=== PATIENT | male | born 1970 | race African-American/Black ===

== ENCOUNTER 2016-12-24 12:31 | Emergency (ER) | payer OTHER ==
[~2016-12-24] VITALS: Ht 188 cm; Wt 166.9 kg
[2016-12-24 14:08] VITALS: BP 132/78
[2016-12-24] MEDS ORDERED: KETOROLAC TROMETH 60MG/2ML VIAL IM ONE (14:45)
== END 2016-12-24 16:36 | disposition home or self-care (01) ==
LOC: ER 12:31
DX: G89.29 Other chronic pain (principal); M54.5 Low back pain; I10 Essential (primary) hypertension; Z87.891 Personal history of nicotine dependence
CPT/HCPCS: 96372; 99283; J1885

== ENCOUNTER 2017-06-15 13:17 | Emergency (ER) | payer OTHER ==
[~2017-06-15] VITALS: Ht 188 cm; Wt 147.0 kg
[2017-06-15 13:22] VITALS: BP 151/106
[2017-06-15] MEDS ORDERED: METHOCARBAMOL 500 MG TAB PO ONE (15:30)
[2017-06-15] MEDS ORDERED: ONDANSETRON HCL 4 MG/2 ML VIAL IM ONE (15:30)
[2017-06-15] MEDS ORDERED: HYDROmorphone HCL 2 MG/ML VL IM ONE (15:30)
== END 2017-06-15 15:27 | disposition home or self-care (01) ==
LOC: ER 13:17
DX: S16.1XXA Strain of muscle, fascia and tendon at neck level, initial encounter (principal); J01.10 Acute frontal sinusitis, unspecified; I10 Essential (primary) hypertension
CPT/HCPCS: 96372; 99284; J1170; J2405

== ENCOUNTER 2017-10-19 07:03 | Inpatient (IN) | payer OTHER ==
[~2017-10-19] VITALS: Ht 188 cm; Wt 169.0 kg
[2017-10-19 07:55] LABS: Basophils # (auto) 0.1 uL; Basophils % (auto) 1.1 % (0.0-2.0); Eosinophils # (auto) 0.1 uL; Eosinophils % (auto) 0.9 % (0.0-7.0); Hematocrit 45.2 % (41.0-53.0); Lymphocytes # (auto) 1.7 uL; Lymphocytes % (auto) 24.9 % (10.0-50.0); Mean Corpuscular Hemoglobin 27.9 pg (28.0-32.0); Mean Corpuscular Hgb Conc. 33.1 g/dL (32.0-36.0); Mean Corpuscular Volume 84.3 fL (80.0-100.0); Monocytes # (auto) 0.7 uL; Neutrophils # (auto) 4.2 uL; Neutrophils % (auto) 62.1 % (37.0-80.0); Nucleated Red Blood Cells % 0.1 %; Platelet Count (auto) 296 10^3/uL (140-450); Red Blood Cells 5.35 10^6/uL (4.5-5.90); Red Cell Distribution Width 14.1 % (11.8-14.3); White Blood Cell 6.7 10^3/uL (4.4-10.8)
[2017-10-19 08:05] LABS: Albumin 3.7 g/dL (3.4-5.0); BUN/Creatinine Ratio 15.6; Calcium 8.8 mg/dL (8.5-10.1); Magnesium 1.9 mg/dL (1.6-2.6); Potassium 4.4 mmol/L (3.5-5.1)
[2017-10-19 08:09] LABS: Total Protein 7.5 g/dL (6.4-8.2)
[2017-10-19 12:09] LABS: Bilirubin, Total 0.3 mg/dL (0.2-1.0)
[2017-10-19] MEDS ORDERED: SODIUM CHLORIDE 0.9% 500 ML IVB ONE (19:46)
[2017-10-19] MEDS ORDERED: ONDANSETRON HCL 4 MG/2 ML VIAL IV ONE (20:45)
[2017-10-19] MEDS ORDERED: MORPHINE SULFATE 4 MG/ML SYR/VIAL IV ONE (20:45)
[2017-10-19] MEDS ORDERED: MORPHINE SULF INJ 2 MG/ML SYRINGE 1ML ONE (20:51)
[2017-10-19] MEDS ORDERED: ONDANSETRON HCL 4 MG/2 ML VIAL IV PRN (21:15)
[2017-10-19] MEDS ORDERED: ACETAMINOPHEN 500 MG TAB PO PRN (21:15)
[2017-10-19] MEDS ORDERED: NITROGLYCERIN 0.4 MG SL TAB SL PRN (21:15)
[2017-10-19] MEDS ORDERED: MORPHINE SULFATE 10 MG/ML INJ 1ML SDV IV PRN (21:15)
[2017-10-19] MEDS: MORPHINE SULFATE 10 MG/ML INJ 1ML SDV IV PRN (22:58)
[2017-10-19] MEDS ORDERED: AMLO5TAB2 PO (23:12)
[2017-10-19 23:16] VITALS: BP 125/73
[2017-10-20 05:50] VITALS: BP 121/71
[2017-10-20 06:35] LABS: Basophils # (auto) 0.1 uL; Basophils % (auto) 1.2 % (0.0-2.0); Eosinophils # (auto) 0.2 uL; Eosinophils % (auto) 2.8 % (0.0-7.0); Hematocrit 42.4 % (41.0-53.0); Hemoglobin 13.9 g/dL (13.5-17.5); Lymphocytes # (auto) 1.5 uL; Lymphocytes % (auto) 27.5 % (10.0-50.0); Mean Corpuscular Hemoglobin 28.1 pg (28.0-32.0); Mean Corpuscular Hgb Conc. 32.8 g/dL (32.0-36.0); Mean Corpuscular Volume 85.7 fL (80.0-100.0); Monocytes # (auto) 0.6 uL; Monocytes % (auto) 11.8 % (0.0-12.0); Neutrophils # (auto) 3.1 uL; Neutrophils % (auto) 56.7 % (37.0-80.0); Nucleated Red Blood Cells % 0.1 %; Platelet Count (auto) 263 10^3/uL (140-450); Red Blood Cells 4.95 10^6/uL (4.5-5.90); Red Cell Distribution Width 14.4 % (11.8-14.3); White Blood Cell 5.5 10^3/uL (4.4-10.8)
[2017-10-20 06:52] LABS: BUN/Creatinine Ratio 16.8; Calcium 8.2 mg/dL (8.5-10.1)
[2017-10-20 09:00] VITALS: BP 126/65
[2017-10-20] MEDS: ENOXAPARIN SOD 150 MG/1 ML SYRINGE SC SCH ×2 (09:20→21:42)
[2017-10-20] MEDS: HYDROcodone-ACET 5/325MG TAB PO PRN (09:20)
[2017-10-20] MEDS: amLODIPine BESYLATE 5 MG TAB PO SCH (09:21)
[2017-10-20 12:54] VITALS: BP 124/69
[2017-10-20] MEDS: MORPHINE SULFATE 10 MG/ML INJ 1ML SDV IV PRN (12:54)
[2017-10-20] MEDS ORDERED: ONDANSETRON HCL 4 MG/2 ML VIAL IV PRN (16:30)
[2017-10-20 17:00] VITALS: BP 117/67
[2017-10-20] MEDS ORDERED: HYDROmorphone HCL 2 MG/ML VL IV SCH (18:00)
[2017-10-20] MEDS ORDERED: HYDROmorphone HCL 2 MG/ML VL IV PRN (18:00)
[2017-10-20 22:00] VITALS: BP 125/65
[2017-10-21] MEDS: HYDROcodone-ACET 5/325MG TAB PO PRN ×2 (04:55→09:18)
[2017-10-21 05:00] VITALS: BP 134/81
[2017-10-21 09:00] VITALS: BP 126/82
[2017-10-21] MEDS: amLODIPine BESYLATE 5 MG TAB PO SCH (09:18)
[2017-10-21] MEDS: ENOXAPARIN SOD 150 MG/1 ML SYRINGE SC SCH (09:19)
[2017-10-21 10:38] VITALS: BP 126/82
== END 2017-10-21 11:25 | disposition home or self-care (01) | DRG 206 ==
LOC: ER 07:03 → TELE 07:04 → TELE-CENTR 22:33
PROVIDERS: ADMIT Nurse Practitioner Family; ATTEND Family Medicine
DX: M94.0 Chondrocostal junction syndrome [Tietze] (principal); E66.01 Morbid (severe) obesity due to excess calories; Z68.42 Body mass index [BMI] 45.0-49.9, adult; F17.210 Nicotine dependence, cigarettes, uncomplicated; R51 Headache; I10 Essential (primary) hypertension; Z79.899 Other long term (current) drug therapy; Z82.3 Family history of stroke; Z82.49 Family history of ischemic heart disease and other diseases of the circulatory system; Z83.3 Family history of diabetes mellitus; Z86.718 Personal history of other venous thrombosis and embolism
CPT/HCPCS: 36415; 71046; 80048; 80053; 80061; 83735; 83880; 84443; 84484; 85025; 85379; 93005; 94761; 96374; J2405

== ENCOUNTER 2020-09-27 02:12 | Inpatient (IN) | payer MEDICARE, OTHER ==
[~2020-09-27] VITALS: Ht 188 cm; Wt 168.3 kg
[~2020-09-27 02:12] MED LIST: AMLO5TAB15 PO
[2020-09-27 03:49] LABS: Basophils # (auto) 0.1 10 ^3/uL (0-0.2); Eosinophils # (auto) 0.2 10 ^3/uL (0-0.8); Mean Corpuscular Volume 78.2 fL (80.0-100.0); Neutrophils # (auto) 4.4 10 ^3/uL (1.6-8.6); White Blood Cell 7.7 10^3/uL (4.4-10.8)
[2020-09-27 03:51] LABS: Basophils % (auto) 0.7 % (0.0-2.0); Eosinophils % (auto) 2.1 % (0.0-7.0); Hematocrit 31.4 % (41.0-53.0); Hemoglobin 9.9 g/dL (13.5-17.5); Lymphocytes # (auto) 2.3 10 ^3/uL (0.4-5.4); Lymphocytes % (auto) 29.3 % (10.0-50.0); Mean Corpuscular Hemoglobin 24.7 pg (28.0-32.0); Mean Corpuscular Hgb Conc. 31.6 g/dL (32.0-36.0); Monocytes # (auto) 0.8 10 ^3/uL (0-1.3); Monocytes % (auto) 10.8 % (0.0-12.0); Neutrophils % (auto) 57.1 % (37.0-80.0); Nucleated Red Blood Cells % 0.1 %; Platelet Count (auto) 307 10^3/uL (140-450); Red Blood Cells 4.02 10^6/uL (4.5-5.90); Red Cell Distribution Width 16.8 % (11.8-14.3)
[2020-09-27 04:03] LABS: INR 1.04 (0.9-1.15); Partial Thromboplastin Time 23.4 sec (23.0-31.2)
[2020-09-27 04:07] LABS: Albumin 2.9 g/dL (3.4-5.0); BUN/Creatinine Ratio 16.1; Calcium 7.9 mg/dL (8.5-10.1); Potassium 4.3 mmol/L (3.5-5.1)
[2020-09-27 04:12] LABS: Bilirubin, Total 0.2 mg/dL (0.2-1.0); Total Protein 5.9 g/dL (6.4-8.2)
[2020-09-27] MEDS ORDERED: MORPHINE SULF INJ 2 MG/ML SYRINGE 1ML IV ONE (04:15)
[2020-09-27] MEDS ORDERED: SODIUM CHLORIDE 0.9% 1,000 ML IV ONE (04:15)
[2020-09-27] MEDS ORDERED: metroNIDAZOLE 500 MG TAB PO ONE (04:30)
[2020-09-27] MEDS ORDERED: ACETAMINOPHEN 325 MG TAB PO PRN (08:15)
[2020-09-27] MEDS: D5W/SOD CHLO 0.9% 1,000 ML IV SCH ×2 (08:15→16:27)
[2020-09-27] MEDS ORDERED: ONDANSETRON HCL 4 MG/2 ML VIAL IV PRN (08:15)
[2020-09-27] MEDS ORDERED: MORPHINE SULF INJ 2 MG/ML SYRINGE 1ML IV PRN (08:15)
[2020-09-27] MEDS ORDERED: DOCUSATE SOD 100 MG CAP PO PRN (08:15)
[2020-09-27] MEDS ORDERED: NITROGLYCERIN 0.4 MG SL TAB SL PRN (08:15)
[2020-09-27] MEDS ORDERED: HYDROcodone-ACET 5/325MG TAB PO PRN (08:15)
[2020-09-27] MEDS ORDERED: PANTOPRAZOLE 40 MG/10 ML VIAL INJ IV SCH (10:00)
[2020-09-27 10:35] LABS: Basophils # (auto) 0.1 10 ^3/uL (0-0.2); Basophils % (auto) 1.4 % (0.0-2.0); Eosinophils # (auto) 0.2 10 ^3/uL (0-0.8); Mean Corpuscular Volume 78.2 fL (80.0-100.0); Monocytes # (auto) 0.8 10 ^3/uL (0-1.3); Monocytes % (auto) 10.4 % (0.0-12.0)
[2020-09-27 10:37] LABS: Eosinophils % (auto) 2.8 % (0.0-7.0); Hematocrit 30.6 % (41.0-53.0); Lymphocytes # (auto) 2.1 10 ^3/uL (0.4-5.4); Lymphocytes % (auto) 28.3 % (10.0-50.0); Mean Corpuscular Hemoglobin 25.6 pg (28.0-32.0); Mean Corpuscular Hgb Conc. 32.7 g/dL (32.0-36.0); Neutrophils # (auto) 4.3 10 ^3/uL (1.6-8.6); Neutrophils % (auto) 57.1 % (37.0-80.0); Nucleated Red Blood Cells % 0.1 %; Platelet Count (auto) 286 10^3/uL (140-450); Red Blood Cells 3.91 10^6/uL (4.5-5.90); Red Cell Distribution Width 16.6 % (11.8-14.3); White Blood Cell 7.5 10^3/uL (4.4-10.8)
[2020-09-27 11:14] LABS: Albumin 3.2 g/dL (3.4-5.0); Calcium 8.1 mg/dL (8.5-10.1); Potassium 4.2 mmol/L (3.5-5.1)
[2020-09-27 11:20] LABS: BUN/Creatinine Ratio 17.6; Bilirubin, Total 0.3 mg/dL (0.2-1.0); Total Protein 6.2 g/dL (6.4-8.2)
[2020-09-27] MEDS: metroNIDAZOLE 500MG/100ML 100 ML IV SCH ×2 (14:00→22:08)
--- NOTE | 2020-09-27 19:30 | NUR ---
PATIENT RESTING IN BED AT THIS TIME. HAS NO CURRENT COMPLAINTS OF PAIN OR SHORTNESS OF BREATH. HE IS CURRENTLY ON ROOM AIR. WILL CONTINUE TO MONITOR.
[2020-09-27 22:00] VITALS: BP 152/100
[2020-09-27] MEDS: PANTOPRAZOLE 40 MG/10 ML VIAL INJ IV SCH (22:08)
[2020-09-27] MEDS: SUCRALFATE 1 GM/10 ML ORAL SUSP PO SCH (22:08)
[2020-09-28 02:20] VITALS: BP 152/75
--- NOTE | 2020-09-28 02:20 | NUR ---
Telemetry admit from YESSY RUBIO admitted to Telemetry unit after SBAR received. Patient oriented to Patria Steele, primary RN, unit, room, bed, and unit policies regarding patient care and visiting hours. Patient now on continuous telemetry monitoring, tele box # 68 and telemetry reading on arrival to unit is 78. Patient placed on bedside oxygen, weighed by bedscale and encouraged to call if they need something. All questions and concerns addressed, patient verbalized understanding. Note:
[2020-09-28 05:00] VITALS: BP 134/74
[2020-09-28] MEDS: metroNIDAZOLE 500MG/100ML 100 ML IV SCH ×3 (05:22→22:40)
[2020-09-28] MEDS: SUCRALFATE 1 GM/10 ML ORAL SUSP PO SCH ×4 (06:01→22:39)
--- NOTE | 2020-09-28 07:40 | NUR ---
Opening Shift Note: Assumed care of patient, awake and alert. No S/S of distress/SOB or pain. Bed in lowest locked position, side rails up x 2, call light within reach. Patient instructed on POC and to call for assist PRN, will continue to monitor for changes Q1hr and PRN.
--- NOTE | 2020-09-28 07:45 | NUR ---
COVID SWAB OBTAINED AND WALKED TO LAB.
[2020-09-28] MEDS: PANTOPRAZOLE 40 MG/10 ML VIAL INJ IV SCH ×2 (08:33→22:40)
[2020-09-28 09:00] VITALS: BP 122/65
--- NOTE | 2020-09-28 12:45 | NUR ---
INHOUSE COVID SWAB COLLECTED AND WALKED TO LAB.
[2020-09-28 13:00] VITALS: BP 117/66
[2020-09-28] MEDS: D5W/SOD CHLO 0.9% 1,000 ML IV SCH (15:27)
--- NOTE | 2020-09-28 16:26 | NUR ---
PAGED DR. Chelsie RICHARD REGARDING PENDING ORDERS AT THIS TIME. AWAITING CALL BACK.
[2020-09-28 17:00] VITALS: BP 118/71
[2020-09-28] MEDS ORDERED: GOLYTELY 4L KIT PO ONE (17:30)
--- NOTE | 2020-09-28 17:40 | NUR ---
PATIENT PROVIDED WITH GOLYTELY AT THIS TIME.
--- NOTE | 2020-09-28 18:48 | NUR ---
CLOSING NOTE: PATIENT RESTING IN BED. NO S/S OF DISTRESS. PATIENT EDUCATED ON IMPORTANCE OF FINISHING GOLYTELY. PATIENT VERBALLY AGREED.
--- NOTE | 2020-09-28 19:17 | NUR ---
IV WENT BAD AT THIS TIME. ENDORSED TO NOC GERARD.
[2020-09-28 19:35] LABS: Hematocrit 26.8 % (41.0-53.0); Hemoglobin 8.8 g/dL (13.5-17.5)
--- NOTE | 2020-09-28 21:00 | NUR ---
Opening Shift Note Received report from flora Rizo RN. Assumed care of patient, awake and alert. No S/S of distress/SOB or pain. Instructed on POC and to call for assist PRN, will continue to monitor for changes Q1hr and PRN. Bed placed in lowest position and call light within reach.
[2020-09-28 22:00] VITALS: BP 150/99
--- NOTE | 2020-09-28 22:00 | NUR ---
Stool sample sent to lab
[2020-09-28 22:16] LABS: Basophils # (auto) 0.1 10 ^3/uL (0-0.2); Eosinophils # (auto) 0.3 10 ^3/uL (0-0.8); Hemoglobin 8.6 g/dL (13.5-17.5); Neutrophils # (auto) 2.7 10 ^3/uL (1.6-8.6); Nucleated Red Blood Cells % 0.1 %; White Blood Cell 5.9 10^3/uL (4.4-10.8)
[2020-09-28 22:18] LABS: Eosinophils % (auto) 4.7 % (0.0-7.0); Hematocrit 26.5 % (41.0-53.0); Lymphocytes # (auto) 2.3 10 ^3/uL (0.4-5.4); Lymphocytes % (auto) 38.2 % (10.0-50.0); Mean Corpuscular Hemoglobin 25.7 pg (28.0-32.0); Mean Corpuscular Hgb Conc. 32.5 g/dL (32.0-36.0); Monocytes # (auto) 0.7 10 ^3/uL (0-1.3); Monocytes % (auto) 11.3 % (0.0-12.0); Neutrophils % (auto) 44.8 % (37.0-80.0); Platelet Count (auto) 264 10^3/uL (140-450); Red Blood Cells 3.35 10^6/uL (4.5-5.90); Red Cell Distribution Width 16.9 % (11.8-14.3)
[2020-09-28 22:44] LABS: Albumin 3.1 g/dL (3.4-5.0); Anion Gap 8 (5-15); Blood Urea Nitrogen 9 mg/dL (7-18); Calcium 7.8 mg/dL (8.5-10.1); Carbon Dioxide 25 mmol/L (21-32); Chloride 107 mmol/L (98-107); Glucose 102 mg/dL (74-106); Potassium 3.4 mmol/L (3.5-5.1); Sodium 140 mmol/L (136-145)
[2020-09-28 22:51] LABS: Alanine Aminotransferase 22 U/L (16-61); Alkaline Phosphatase 53 U/L (45-117); Aspartate Aminotransferase 18 U/L (15-37); BUN/Creatinine Ratio 9.1; Bilirubin, Total 0.2 mg/dL (0.2-1.0); GFR African American 102 mL/min; GFR Non-African American 85 mL/min; Total Protein 6.2 g/dL (6.4-8.2)
[2020-09-29 04:00] VITALS: BP 154/86
--- NOTE | 2020-09-29 04:56 | NUR ---
Patient is resting in bed, closed eyes and no distress noted.
[2020-09-29] MEDS: metroNIDAZOLE 500MG/100ML 100 ML IV SCH ×3 (05:39→21:12)
[2020-09-29] MEDS ORDERED: GOLYTELY 4L KIT PO ONE (06:00)
[2020-09-29] MEDS ORDERED: MAGNESIUM CITRATE SOLUTION 300 ML BTL PO ONE (06:00)
[2020-09-29] MEDS: SUCRALFATE 1 GM/10 ML ORAL SUSP PO SCH ×4 (06:53→21:12)
[2020-09-29] MEDS: D5W/SOD CHLO 0.9% 1,000 ML IV SCH ×2 (06:54→15:12)
--- NOTE | 2020-09-29 07:30 | NUR ---
Opening Shift Note: Assumed care of patient, awake and alert. No S/S of distress/SOB or pain. Patient completed bowel prep for pending EGD and colonoscopy. Bed in lowest locked position, side rails up x2, call light within reach. Patient instructed on POC and to call for assist PRN, will continue to monitor for changes Q1hr and PRN.
[2020-09-29 08:33] LABS: Basophils # (auto) 0.1 10 ^3/uL (0-0.2); Eosinophils # (auto) 0.2 10 ^3/uL (0-0.8); Lymphocytes # (auto) 1.6 10 ^3/uL (0.4-5.4); Neutrophils # (auto) 2.6 10 ^3/uL (1.6-8.6); Nucleated Red Blood Cells % 0.1 %; Red Blood Cells 3.14 10^6/uL (4.5-5.90)
[2020-09-29 08:35] LABS: Basophils % (auto) 1.2 % (0.0-2.0); Eosinophils % (auto) 4.5 % (0.0-7.0); Hematocrit 24.5 % (41.0-53.0); Lymphocytes % (auto) 32.1 % (10.0-50.0); Mean Corpuscular Hemoglobin 25.3 pg (28.0-32.0); Mean Corpuscular Hgb Conc. 32.5 g/dL (32.0-36.0); Monocytes # (auto) 0.5 10 ^3/uL (0-1.3); Monocytes % (auto) 10.5 % (0.0-12.0); Neutrophils % (auto) 51.7 % (37.0-80.0); Platelet Count (auto) 261 10^3/uL (140-450); Red Cell Distribution Width 16.6 % (11.8-14.3); White Blood Cell 5.1 10^3/uL (4.4-10.8)
[2020-09-29] MEDS: PANTOPRAZOLE 40 MG/10 ML VIAL INJ IV SCH ×2 (08:36→21:12)
[2020-09-29 08:51] LABS: BUN/Creatinine Ratio 6.3; Potassium 3.6 mmol/L (3.5-5.1)
[2020-09-29 09:00] VITALS: BP 151/82
--- NOTE | 2020-09-29 12:07 | NUR ---
PATIENT TAKEN DOWN TO OR AT THIS TIME.
[2020-09-29] MEDS ORDERED: MEPERIDINE HCL (25 MG/ML) 1ML VIAL ONE (12:42)
[2020-09-29] MEDS ORDERED: MIDAZOLAM HCL 1MG/1ML-2 ML VIAL ONE (12:42)
[2020-09-29] MEDS ORDERED: fentaNYL CITRATE 100 MCG/2 ML VL ONE (12:42)
[2020-09-29] MEDS ORDERED: LIDOCAINE VISCOUS 2% 15ML UD ONE (12:42)
[2020-09-29] MEDS ORDERED: DexAMETHasone SOD PHOS 10MG/1ML VIAL INJ ONE (12:44)
--- NOTE | 2020-09-29 14:27 | NUR ---
PATIENT BACK TO UNIT FROM OR. NO DISTRESS NOTED
[2020-09-29 15:00] VITALS: BP 142/80
--- NOTE | 2020-09-29 18:14 | NUR ---
PATIENT PROVIDED A CLEAR LIQUID TRAY. PATIENT TOLERATED WELL.
--- NOTE | 2020-09-29 18:33 | NUR ---
PATIENT RESTING IN BED. NO S/S OF DISTRESS.
--- NOTE | 2020-09-29 19:24 | NUR ---
Opening Shift Note Assumed care of patient, awake and alert x 4. No S/S of distress/SOB or pain. Bed is in lowest position and locked. Call light within reach. Board updated. Instructed on POC and to call for assist PRN, will continue to monitor for changes Q1hr and PRN.
[2020-09-29 19:32] LABS: Hematocrit 26.6 % (41.0-53.0); Hemoglobin 8.7 g/dL (13.5-17.5)
[2020-09-29 21:00] VITALS: BP 130/90
--- NOTE | 2020-09-29 23:07 | NUR ---
Received patient from Tyrell RN Patient is resting in bed, no complaints of pain or distress, call light is within reach, will continue to monitor.
--- NOTE | 2020-09-29 23:08 | NUR ---
Care endorsed to GERARD Payne. Patient asleep, showing no signs of distress at this time.
[2020-09-30 00:01] VITALS: BP 147/94
--- NOTE | 2020-09-30 01:13 | NUR ---
IV removal from MATT due to infiltration IV DC'd with clean sterile technique, catheter fully intact. Pressure dressing applied to site. Patient tolerated well.
--- NOTE | 2020-09-30 01:14 | NUR ---
IV insertion to RFA IV access obtained, via clean sterile technique by inserting 22 gauge catheter at RFA after 1 attempt(s). IV secured properly. No trauma to site. Patient tolerated well.
[2020-09-30 05:45] VITALS: BP 148/97
[2020-09-30] MEDS: D5W/SOD CHLO 0.9% 1,000 ML IV SCH (06:08)
[2020-09-30] MEDS: SUCRALFATE 1 GM/10 ML ORAL SUSP PO SCH ×2 (06:22→11:30)
[2020-09-30] MEDS: metroNIDAZOLE 500MG/100ML 100 ML IV SCH (06:22)
--- NOTE | 2020-09-30 07:00 | NUR ---
OPENING SHIFT NOTE RECEIVED REPORT ON THE PATIENT. AWAKE LYING IN BED. PATIENT SHOWS NO SIGNS OF DISTRESS AT THIS TIME. DISCUSSED THE PLAN OF CARE WITH THE PATIENT. BED IN LOWEST POSITION, SIDE RAILS UP X2, AND THE CALL LIGHT IS WITHIN REACH.
[2020-09-30 09:00] VITALS: BP 153/85
[2020-09-30] MEDS: PANTOPRAZOLE 40 MG/10 ML VIAL INJ IV SCH (10:00)
--- NOTE | 2020-09-30 10:33 | NUR ---
Nutrition Assessment Notes please see attached link for complete assessment Est Energy needs ABW 127 [id number] kcals (17-20 kcal/kgABW) Est Protein needs: 127-139 gms/day (1.0-1.1 gm/kgABW) Will continue to monitor and reassess prn.
[2020-09-30 11:39] VITALS: BP 153/85
== END 2020-09-30 13:48 | disposition home or self-care (01) | DRG 378 ==
LOC: ER 02:12 → TELE 02:13 → TELE-WESTW 09-28 02:00 → TELE-CENTR 09-28 02:36
PROVIDERS: ADMIT Nurse Practitioner Family; ATTEND Internal Medicine
PROC: 0DJD8ZZ Inspection of Lower Intestinal Tract, Via Natural or Artificial Opening Endoscopic (ICD-10-PCS; 2020-09-29)
PROC: 0DB68ZX Excision of Stomach, Via Natural or Artificial Opening Endoscopic, Diagnostic (ICD-10-PCS; principal; 2020-09-29 12:36)
PROC: 0DB88ZX Excision of Small Intestine, Via Natural or Artificial Opening Endoscopic, Diagnostic (ICD-10-PCS; 2020-09-29 12:36)
DX: K57.31 Diverticulosis of large intestine without perforation or abscess with bleeding (principal); E44.1 Mild protein-calorie malnutrition; Z68.42 Body mass index [BMI] 45.0-49.9, adult; Z20.828 Contact with and (suspected) exposure to other viral communicable diseases; K25.4 Chronic or unspecified gastric ulcer with hemorrhage; K29.81 Duodenitis with bleeding; K29.71 Gastritis, unspecified, with bleeding; D64.9 Anemia, unspecified; E66.01 Morbid (severe) obesity due to excess calories; I10 Essential (primary) hypertension; M51.36 Other intervertebral disc degeneration, lumbar region; F17.210 Nicotine dependence, cigarettes, uncomplicated; K44.9 Diaphragmatic hernia without obstruction or gangrene; F32.9 Major depressive disorder, single episode, unspecified; Z79.899 Other long term (current) drug therapy; Z86.718 Personal history of other venous thrombosis and embolism; Z82.3 Family history of stroke; Z82.49 Family history of ischemic heart disease and other diseases of the circulatory system; Z83.3 Family history of diabetes mellitus
CPT/HCPCS: 36415; 43239; 45378; 74176; 80048; 80053; 82270; 83735; 83880; 84443; 84484; 85014; 85018; 85025; 85379; 85610; 85730; 86850; 86900; 86901; 87045; 87426; 87427; 87493; 93005; 96361; 96374; C9113; G0378; J1100; J2250; J3490; J7042

== ENCOUNTER 2022-03-23 21:30 | Inpatient (IN) | payer MEDICARE, OTHER ==
[~2022-03-23] VITALS: Ht 188 cm; Wt 47.1 kg
[2022-03-23 22:56] LABS: Basophils # (auto) 0.1 10 ^3/uL (0-0.2); Eosinophils # (auto) 0.1 10 ^3/uL (0-0.8); Eosinophils % (auto) 2.6 % (0.0-7.0); Lymphocytes # (auto) 1.6 10 ^3/uL (0.4-5.4); Monocytes # (auto) 0.6 10 ^3/uL (0-1.3); White Blood Cell 5.1 10^3/uL (4.4-10.8)
[2022-03-23 22:58] LABS: Basophils % (auto) 1.5 % (0.0-2.0); Hematocrit 40.2 % (41.0-53.0); Lymphocytes % (auto) 31.3 % (10.0-50.0); Mean Corpuscular Hemoglobin 24.8 pg (28.0-32.0); Mean Corpuscular Hgb Conc. 32.3 g/dL (32.0-36.0); Monocytes % (auto) 11.4 % (0.0-12.0); Neutrophils # (auto) 2.7 10 ^3/uL (1.6-8.6); Neutrophils % (auto) 53.2 % (37.0-80.0); Nucleated Red Blood Cells % 0.1 %; Red Blood Cells 5.22 10^6/uL (4.5-5.90); Red Cell Distribution Width 19.6 % (11.8-14.3)
[2022-03-23 23:21] LABS: Albumin 3.4 g/dL (3.4-5.0); BUN/Creatinine Ratio 12.6; Calcium 8.8 mg/dL (8.5-10.1); Potassium 3.7 mmol/L (3.5-5.1)
[2022-03-23 23:24] LABS: Bilirubin, Total 0.3 mg/dL (0.2-1.0)
[2022-03-24] MEDS ORDERED: ALUM & MAG HYDROX-SIMETH LIQ(MAALOX) 30 ML PO ONE (01:30)
[2022-03-24] MEDS ORDERED: IOHEXOL 350 MG/ML 100ML IJ ONE (02:23)
[2022-03-24] MEDS ORDERED: ASPirin 325 MG TAB PO ONE (02:30)
[2022-03-24] MEDS ORDERED: ONDANSETRON HCL 4 MG/2 ML VIAL IV PRN (06:30)
[2022-03-24] MEDS ORDERED: NITROGLYCERIN 0.4 MG SL TAB SL PRN (06:30)
[2022-03-24] MEDS ORDERED: MORPHINE SULFATE INJ 2 MG/ml SYRG IV PRN (06:30)
[2022-03-24] MEDS ORDERED: TEMAZEPAM 15 MG CAP PO PRN (06:30)
[2022-03-24] MEDS ORDERED: LISINOPRIL 10 MG TAB PO SCH (10:00)
[2022-03-24] MEDS ORDERED: NITROGLYCERIN 0.4 MG SL TAB SL ONE (10:00)
[2022-03-24] MEDS: ENOXAPARIN SOD 40 MG/0.4 ML SYRINGE SC SCH (10:16)
[2022-03-24] MEDS: ASPirin 81 mg TAB PO SCH (10:16)
[2022-03-24] MEDS: dilTIAZem 120MG ER CAP PO SCH (14:37)
[2022-03-24] MEDS: ACETAMINOPHEN 325 MG TAB PO PRN (19:16)
[2022-03-24] MEDS: ATORVASTATIN 20 MG TAB PO SCH (21:56)
[2022-03-24] MEDS: METOPROLOL TARTRATE 50 MG TAB PO SCH ×2 (21:57→23:00)
[2022-03-24 22:00] VITALS: BP 161/87
[2022-03-24 22:25] VITALS: BP 150/90
[2022-03-25 00:34] VITALS: BP 161/87
[2022-03-25] MEDS ORDERED: FER325T PO (01:54)
[2022-03-25] MEDS ORDERED: ATOR10TA PO (01:54)
[2022-03-25] MEDS ORDERED: CHOL20007 (02:08)
[2022-03-25 05:00] VITALS: BP 139/89
[2022-03-25 05:32] LABS: Basophils # (auto) 0.1 10 ^3/uL (0-0.2); Eosinophils # (auto) 0.2 10 ^3/uL (0-0.8); Eosinophils % (auto) 3.5 % (0.0-7.0); Hematocrit 38.1 % (41.0-53.0); Hemoglobin 12.5 g/dL (13.5-17.5); Lymphocytes # (auto) 1.9 10 ^3/uL (0.4-5.4); Mean Corpuscular Hemoglobin 25.1 pg (28.0-32.0); Mean Corpuscular Hgb Conc. 32.8 g/dL (32.0-36.0); Mean Corpuscular Volume 76.6 fL (80.0-100.0); Monocytes # (auto) 0.5 10 ^3/uL (0-1.3); Monocytes % (auto) 11.3 % (0.0-12.0); Neutrophils # (auto) 2.1 10 ^3/uL (1.6-8.6); Neutrophils % (auto) 44.2 % (37.0-80.0); Red Blood Cells 4.98 10^6/uL (4.5-5.90); Red Cell Distribution Width 19.4 % (11.8-14.3); White Blood Cell 4.8 10^3/uL (4.4-10.8)
[2022-03-25 05:57] LABS: Calcium 8.9 mg/dL (8.5-10.1); Potassium 4.1 mmol/L (3.5-5.1)
[2022-03-25 06:04] LABS: Albumin 3.3 g/dL (3.4-5.0); BUN/Creatinine Ratio 14.7; Bilirubin, Total 0.7 mg/dL (0.2-1.0); Total Protein 6.9 g/dL (6.4-8.2)
[2022-03-25 06:32] LABS: Urine Bacteria NONE SEEN /hpf (None Seen); Urine Blood Negative /uL (Negative); Urine Mucus FEW (None Seen); Urine Specific Gravity 1.031 (1.001-1.035); Urine WBC 3 /hpf (0 - 3)
[2022-03-25 06:38] LABS: Alcohol, Urine < 3.0 mg/dL (0-10); Amphetamine Screen, Urine NEGATIVE (NEGATIVE); Barbiturate Scree,Urine NEGATIVE (NEGATIVE); Benzodiazephine Screen, Urine NEGATIVE (NEGATIVE); Cannabinoid Screen, Urine NEGATIVE (NEGATIVE); Cocaine Screen, Urine NEGATIVE (NEGATIVE); Opiate Scree,Urine NEGATIVE (NEGATIVE); Phencyclidine Screen, Urine NEGATIVE (NEGATIVE)
[2022-03-25 08:44] VITALS: BP 135/90
[2022-03-25] MEDS ORDERED: ADENOSINE IV ONE (09:00)
[2022-03-25] MEDS ORDERED: GIVE UN DILUTED IV ONE (09:00)
[2022-03-25] MEDS: METOPROLOL TARTRATE 50 MG TAB PO SCH ×2 (11:29→21:21)
[2022-03-25] MEDS: ASPirin 81 mg TAB PO SCH (11:29)
[2022-03-25] MEDS: dilTIAZem 120MG ER CAP PO SCH (11:30)
[2022-03-25] MEDS: ACETAMINOPHEN 325 MG TAB PO PRN (11:31)
[2022-03-25] MEDS: ENOXAPARIN SOD 40 MG/0.4 ML SYRINGE SC SCH (11:31)
[2022-03-25] MEDS: SODIUM CHLORIDE 0.9% 1,000 ML IV SCH (12:30)
[2022-03-25] MEDS ORDERED: LORazepam 2MG/ML-1ML VIAL IV PRN (12:30)
[2022-03-25] MEDS: METOCLOPRAMIDE HCL 10 MG TAB PO SCH ×2 (14:00→21:32)
[2022-03-25 16:15] VITALS: BP 134/88
[2022-03-25] MEDS ORDERED: IBUPROFEN 400 MG TAB PO ONE (17:40)
[2022-03-25] MEDS ORDERED: ACETAMINOPHEN 325 MG TAB PO PRN (19:45)
[2022-03-25] MEDS: ATORVASTATIN 20 MG TAB PO SCH (21:20)
[2022-03-25 22:00] VITALS: BP 142/82
[2022-03-25] MEDS ORDERED: IBUPROFEN 400 MG TAB PO PRN (22:00)
[2022-03-26] MEDS: SODIUM CHLORIDE 0.9% 1,000 ML IV SCH ×3 (02:18→18:57)
[2022-03-26 05:00] VITALS: BP 117/72
[2022-03-26] MEDS: METOCLOPRAMIDE HCL 10 MG TAB PO SCH ×3 (05:23→21:34)
[2022-03-26 09:00] VITALS: BP 125/67
[2022-03-26] MEDS: ASPirin 81 mg TAB PO SCH (09:22)
[2022-03-26] MEDS: METOPROLOL TARTRATE 50 MG TAB PO SCH ×2 (09:23→21:33)
[2022-03-26] MEDS: dilTIAZem 120MG ER CAP PO SCH (09:23)
[2022-03-26] MEDS: ENOXAPARIN SOD 40 MG/0.4 ML SYRINGE SC SCH (09:24)
[2022-03-26] MEDS: DexAMETHasone INJECTION 10 MG in D5W 5% 50 ML IV SCH (10:36)
[2022-03-26 13:00] VITALS: BP 113/63
[2022-03-26 17:00] VITALS: BP 150/85
[2022-03-26] MEDS: ATORVASTATIN 20 MG TAB PO SCH (21:33)
[2022-03-26 22:00] VITALS: BP 162/85
[2022-03-27] MEDS: SODIUM CHLORIDE 0.9% 1,000 ML IV SCH (04:10)
[2022-03-27 05:00] VITALS: BP 164/92
[2022-03-27] MEDS: METOCLOPRAMIDE HCL 10 MG TAB PO SCH (05:41)
[2022-03-27] MEDS ORDERED: DILT120T8 PO (08:48)
[2022-03-27] MEDS ORDERED: ASPI-498 PO (08:48)
[2022-03-27] MEDS ORDERED: METO25TA5 PO (08:48)
[2022-03-27] MEDS ORDERED: DEX4T PO (08:48)
[2022-03-27] MEDS ORDERED: METO-281 PO (08:48)
[2022-03-27 09:00] VITALS: BP 173/100
[2022-03-27] MEDS ORDERED: cloNIDine HCL 0.1 MG TAB PO ONE (09:00)
[2022-03-27] MEDS: ASPirin 81 mg TAB PO SCH (09:13)
[2022-03-27] MEDS: dilTIAZem 120MG ER CAP PO SCH (09:14)
[2022-03-27] MEDS: ENOXAPARIN SOD 40 MG/0.4 ML SYRINGE SC SCH (09:14)
[2022-03-27] MEDS: METOPROLOL TARTRATE 50 MG TAB PO SCH (09:15)
[2022-03-27] MEDS: DexAMETHasone INJECTION 10 MG in D5W 5% 50 ML IV SCH (10:01)
== END 2022-03-27 12:15 | disposition home or self-care (01) | DRG 313 ==
LOC: ER 21:34 → TELE 03-24 06:19 → TELE-EAST 03-24 21:15
PROVIDERS: ADMIT Nurse Practitioner; ATTEND Family Medicine
PROC: 5A09357 Assistance with Respiratory Ventilation, Less than 24 Consecutive Hours, Continuous Positive Airway Pressure (ICD-10-PCS; principal; 2022-03-25)
PROC: 5A09357 Assistance with Respiratory Ventilation, Less than 24 Consecutive Hours, Continuous Positive Airway Pressure (ICD-10-PCS; 2022-03-26)
DX: R07.9 Chest pain, unspecified (principal); Z68.42 Body mass index [BMI] 45.0-49.9, adult; I50.22 Chronic systolic (congestive) heart failure; E66.01 Morbid (severe) obesity due to excess calories; G47.30 Sleep apnea, unspecified; I11.0 Hypertensive heart disease with heart failure; Z20.822 Contact with and (suspected) exposure to COVID-19
CPT/HCPCS: 36415; 70551; 71045; 71260; 74177; 78452; 80053; 80307; 81001; 84484; 85025; 85379; 85652; 86141; 93005; 93017; 93306; 93970; 94660; 96372; G0378; J0153; J1100; J7060

== ENCOUNTER → 2023-06-21 | Outpatient (CLI) | payer MEDICARE, OTHER ==
[~2023-06-21] MED LIST changes: -AMLO5TAB15 PO; +ASPI-498 PO; +ATOR10TA PO; +CHOL20007; +DEX4T PO; +DILT120T8 PO; +FER325T PO; +METO-281 PO; +METO25TA5 PO
[2023-06-21 10:14] LABS: Basophils # (auto) 0 10 ^3/uL (0-0.2); Basophils % (auto) 0.8 % (0.0-2.0); Eosinophils # (auto) 0.1 10 ^3/uL (0-0.8); Eosinophils % (auto) 2.1 % (0.0-7.0); Hematocrit 44.8 % (41.0-53.0); Hemoglobin 14.6 g/dL (13.5-17.5); Mean Corpuscular Hgb Conc. 32.6 g/dL (32.0-36.0); Monocytes # (auto) 0.8 10 ^3/uL (0-1.3); Monocytes % (auto) 13.7 % (0.0-12.0); Neutrophils # (auto) 2.8 10 ^3/uL (1.6-8.6); Neutrophils % (auto) 48.4 % (37.0-80.0); Nucleated Red Blood Cells % 0.1 %; Red Blood Cells 5.39 10^6/uL (4.5-5.90); Red Cell Distribution Width 15.9 % (11.8-14.3); White Blood Cell 5.8 10^3/uL (4.4-10.8)
[2023-06-21 10:44] LABS: Triglycerides 58 mg/dL (< 150)
[2023-06-21 10:46] LABS: Cholesterol 153 mg/dL (< 200); LDL Cholesterol 105 mg/dL (< 100)
[2023-06-21 10:47] LABS: HDL Cholesterol 35 mg/dL (40-59)
== END | disposition home or self-care (01) ==
LOC: LAB 09:38
PROVIDERS: ATTEND Student in an Organized Health Care Education/Training Program
DX: Z12.11 Encounter for screening for malignant neoplasm of colon (principal); E66.01 Morbid (severe) obesity due to excess calories; I10 Essential (primary) hypertension; E84.9 Cystic fibrosis, unspecified
CPT/HCPCS: 36415; 80061; 85025

== ENCOUNTER 2023-08-14 15:17 | Emergency (ER) | payer MEDICARE ==
[~2023-08-14] VITALS: Ht 188 cm; Wt 171.9 kg
[2023-08-14 17:19] LABS: Basophils # (auto) 0.1 10 ^3/uL (0-0.2); Basophils % (auto) 0.9 % (0.0-2.0); Eosinophils # (auto) 0.1 10 ^3/uL (0-0.8); Eosinophils % (auto) 2.4 % (0.0-7.0); Hemoglobin 14.7 g/dL (13.5-17.5); Lymphocytes # (auto) 2.2 10 ^3/uL (0.4-5.4); Lymphocytes % (auto) 35.9 % (10.0-50.0); Mean Corpuscular Hemoglobin 27.3 pg (28.0-32.0); Mean Corpuscular Hgb Conc. 32.1 g/dL (32.0-36.0); Mean Corpuscular Volume 85.2 fL (80.0-100.0); Monocytes # (auto) 0.7 10 ^3/uL (0-1.3); Monocytes % (auto) 11.3 % (0.0-12.0); Neutrophils % (auto) 49.5 % (37.0-80.0); Nucleated Red Blood Cells % 0.1 %; Red Cell Distribution Width 15.4 % (11.8-14.3); White Blood Cell 6.1 10^3/uL (4.4-10.8)
[2023-08-14 17:36] LABS: Alanine Aminotransferase 17 U/L (7-40); Albumin 4.3 g/dL (3.2-4.8); Alkaline Phosphatase 62 U/L (46-116); Anion Gap 4 (5-15); Aspartate Aminotransferase 18 U/L (13-40); BUN/Creatinine Ratio 11.3 (10.0-20.0); Bilirubin, Total 0.5 mg/dL (0.2-1.0); Blood Urea Nitrogen 14 mg/dL (9-23); Calcium 9.2 mg/dL (8.7-10.4); Carbon Dioxide 30 mmol/L (20-30); Chloride 105 mmol/L (98-107); Glucose 92 mg/dL (74-106); Potassium 4.4 mmol/L (3.5-5.1); Sodium 139 mmol/L (136-145)
[2023-08-14 17:37] LABS: Total Protein 7.2 g/dL (5.7-8.2)
[2023-08-14] MEDS ORDERED: PROCHLORPERAZINE EDISYLATE 5 MG/ML 2ML VIAL IM ONE (18:30)
[2023-08-14] MEDS ORDERED: HYDROcodone-ACET 7.5/325MG TAB PO ONE (18:30)
[2023-08-14] MEDS ORDERED: KETOROLAC TROMETH 60MG/2ML VIAL IM ONE (18:30)
[2023-08-14] MEDS ORDERED: HYDR-4902 PO (20:03)
[2023-08-14] MEDS ORDERED: ZOFR4T PO (20:03)
[2023-08-14 20:15] VITALS: TEMP 98.1
[2023-08-14] MEDS ORDERED: cloNIDine HCL 0.1 MG TAB PO ONE (20:15)
[2023-08-14 20:52] VITALS: BP 155/104; RESP 18; O2SAT 97
[2023-08-14 23:05] VITALS: PULSE 70
== END 2023-08-14 20:53 | disposition home or self-care (01) ==
LOC: ER 15:17
DX: R51.9 Headache, unspecified (principal); I10 Essential (primary) hypertension; F17.210 Nicotine dependence, cigarettes, uncomplicated
CPT/HCPCS: 36415; 70450; 80053; 84484; 85025; 93005; 96372; 99285; J0780; J1885

== ENCOUNTER → 2023-10-14 | Outpatient (CLI) | payer MEDICARE, OTHER ==
[~2023-10-14] MED LIST changes: +HYDR-4902 PO; +ZOFR4T PO
== END | disposition home or self-care (01) ==
LOC: Rad HDHVI 15:33
PROVIDERS: ATTEND Internal Medicine Cardiovascular Disease
DX: Z01.810 Encounter for preprocedural cardiovascular examination (principal); I11.9 Hypertensive heart disease without heart failure
CPT/HCPCS: 93306

== ENCOUNTER 2024-01-10 09:38 | Inpatient (IN) | payer MEDICARE, OTHER ==
[~2024-01-10] VITALS: Ht 188 cm; Wt 176.5 kg
[~2024-01-10 09:38] MED LIST changes: +AMLO1TAB23 PO; -ASPI-498 PO; -ATOR10TA PO; -DEX4T PO; -DILT120T8 PO; -HYDR-4902 PO; -METO-281 PO; -METO25TA5 PO; -ZOFR4T PO
[2024-01-10] MEDS ORDERED: VANCOMYCIN HCL 1000 MG VL ONE (09:44)
[2024-01-10] MEDS ORDERED: EPINEPHrine HCL 1 MG/1 ML AMP ONE (09:45)
[2024-01-10] MEDS ORDERED: TRANEXAMIC ACID 20 ML ONE (09:45)
[2024-01-10] MEDS ORDERED: ROPIVACAINE 0.5% (5MG/ML) 20ML AMPULE IJ ONE (09:46)
[2024-01-10] MEDS ORDERED: ceFAZolin 2 GM/D5W50ml 50 ML IV ONE (09:59)
[2024-01-10] MEDS ORDERED: fentaNYL CITRATE 100 MCG/2 ML VL ONE ×3 (10:23→16:07)
[2024-01-10] MEDS ORDERED: MIDAZOLAM HCL 2MG/2ML 2ml VIAL (1mg/ml) ONE ×2 (10:23→13:49)
[2024-01-10] MEDS ORDERED: PROPOFOL 10 MG/ML 20 ML IV ONE (10:23)
[2024-01-10] MEDS ORDERED: SUCCINYLCHOLINE CHLORIDE 20 MG/ML 10ML VIAL IV ONE (14:02)
[2024-01-10] MEDS ORDERED: MEPERIDINE HCL (50 MG/ML) 1 ML VIAL ONE ×2 (14:31→16:01)
[2024-01-10] MEDS ORDERED: BUPIVACAINE HCL 50 ML ONE (16:53)
[2024-01-10] MEDS ORDERED: ACETAMINOPHEN 325 MG TAB PO PRN (17:45)
[2024-01-10] MEDS: D5W/LACTATED RINGERS 1,000 ML IV SCH (17:45)
[2024-01-10] MEDS ORDERED: MEPERIDINE HCL (25 MG/ML) 1ML VIAL ONE (17:46)
[2024-01-10] MEDS ORDERED: ONDANSETRON HCL 4 MG/2 ML VIAL ONE (17:46)
[2024-01-10] MEDS ORDERED: ACETAMINOPHEN 325 MG TAB PO SCH (18:00)
[2024-01-10] MEDS ORDERED: KETOROLAC TROMETH 30 MG/ML 1ML VIAL IV SCH (18:00)
[2024-01-10 18:22] VITALS: PULSE 96; RESP 10; O2SAT 100
[2024-01-10] MEDS ORDERED: HYDROmorphone HCL 2 MG/ML VL/or syr ONE (18:42)
[2024-01-10] MEDS ORDERED: ACETAMINOPHEN IV 100 ML IV ONE (18:43)
[2024-01-10] MEDS: HYDROmorphone HCL 2 MG/ML VL/or syr IV PRN (18:45)
[2024-01-10] MEDS ORDERED: MEPERIDINE HCL (25 MG/ML) 1ML VIAL IV PRN (18:45)
[2024-01-10] MEDS ORDERED: ONDANSETRON HCL 4 MG/2 ML VIAL IV ONE (18:45)
[2024-01-10 18:50] VITALS: PULSE 87; RESP 21; O2SAT 95
[2024-01-10] MEDS: ACETAMINOPHEN IV 1000 MG/100ML (10MG/ML) IV ONE (18:50)
[2024-01-10 20:00] VITALS: BP 145/83; PULSE 80; RESP 20; TEMP 98.1; O2SAT 94
[2024-01-10 20:32] VITALS: BP 145/83; PULSE 80; RESP 20; TEMP 98.1; O2SAT 94
[2024-01-10 21:00] VITALS: BP 145/83; PULSE 80; RESP 20; TEMP 97.5; O2SAT 94
[2024-01-10] MEDS: KETOROLAC TROMETH 30 MG/ML 1ML VIAL IV PRN (21:29)
[2024-01-10] MEDS: PREGABALIN 25 MG CAP PO SCH (21:30)
[2024-01-10] MEDS: ceFAZolin 1GM/50ML 50 ML IV SCH (21:30)
[2024-01-10] MEDS ORDERED: ceFAZolin 2 GM/D5W50ml 50 ML IV SCH (22:00)
[2024-01-11] VITALS (8 sets, daily range): BP systolic 111–136; BP diastolic 64–86; PULSE 75–102; RESP 16–20; TEMP 97.4–99.9; O2SAT 90–99
[2024-01-11] MEDS: oxyCODONE HCL 5MG TAB PO PRN ×2 (01:19→09:28)
[2024-01-11] MEDS: amLODIPine BESYLATE 5 MG TAB PO SCH (09:17)
[2024-01-11] MEDS: ASPirin 81 mg TAB PO SCH (09:17)
[2024-01-11 10:09] LABS: Basophils # (auto) 0 10 ^3/uL (0-0.2); Basophils % (auto) 0.5 % (0.0-2.0); Eosinophils # (auto) 0.1 10 ^3/uL (0-0.8); Eosinophils % (auto) 1.9 % (0.0-7.0); Hematocrit 37.7 % (41.0-53.0); Hemoglobin 12.2 g/dL (13.5-17.5); Lymphocytes # (auto) 1.3 10 ^3/uL (0.4-5.4); Lymphocytes % (auto) 26.5 % (10.0-50.0); Mean Corpuscular Hemoglobin 27.7 pg (28.0-32.0); Mean Corpuscular Hgb Conc. 32.4 g/dL (32.0-36.0); Mean Corpuscular Volume 85.6 fL (80.0-100.0); Monocytes # (auto) 0.8 10 ^3/uL (0-1.3); Monocytes % (auto) 15.6 % (0.0-12.0); Neutrophils # (auto) 2.8 10 ^3/uL (1.6-8.6); Neutrophils % (auto) 55.5 % (37.0-80.0); Nucleated Red Blood Cells % 0.1 %; Red Blood Cells 4.41 10^6/uL (4.5-5.90); Red Cell Distribution Width 14.7 % (11.8-14.3); White Blood Cell 5.1 10^3/uL (4.4-10.8)
[2024-01-11 10:19] LABS: Anion Gap 3 (5-15); Carbon Dioxide 30 mmol/L (20-30); Chloride 105 mmol/L (98-107); Potassium 3.9 mmol/L (3.5-5.1); Sodium 138 mmol/L (136-145)
[2024-01-11 10:25] LABS: BUN/Creatinine Ratio 12.4 (10.0-20.0); Blood Urea Nitrogen 12 mg/dL (9-23); Glucose 103 mg/dL (74-106)
[2024-01-12] VITALS (7 sets, daily range): BP systolic 134–159; BP diastolic 66–90; PULSE 83–95; RESP 17–19; TEMP 97.9–98.5; O2SAT 92–98
[2024-01-12 08:25] LABS: Basophils # (auto) 0.1 10 ^3/uL (0-0.2); Basophils % (auto) 1.2 % (0.0-2.0); Eosinophils # (auto) 0.2 10 ^3/uL (0-0.8); Hemoglobin 13.3 g/dL (13.5-17.5); Lymphocytes % (auto) 24.8 % (10.0-50.0); Mean Corpuscular Hemoglobin 27.4 pg (28.0-32.0); Mean Corpuscular Hgb Conc. 31.6 g/dL (32.0-36.0); Mean Corpuscular Volume 86.6 fL (80.0-100.0); Monocytes # (auto) 1.4 10 ^3/uL (0-1.3); Monocytes % (auto) 17.2 % (0.0-12.0); Neutrophils # (auto) 4.4 10 ^3/uL (1.6-8.6); Neutrophils % (auto) 54.8 % (37.0-80.0); Red Blood Cells 4.85 10^6/uL (4.5-5.90); Red Cell Distribution Width 14.6 % (11.8-14.3)
[2024-01-12 08:35] LABS: Chloride 104 mmol/L (98-107); Sodium 137 mmol/L (136-145)
[2024-01-12 08:37] LABS: Anion Gap 5 (5-15); Calcium 8.5 mg/dL (8.5-10.1); Carbon Dioxide 28 mmol/L (20-30)
[2024-01-12 08:42] LABS: BUN/Creatinine Ratio 10.6 (10.0-20.0); Blood Urea Nitrogen 11 mg/dL (9-23); Glucose 91 mg/dL (74-106)
== END 2024-01-12 17:37 | disposition home or self-care (01) | DRG 470 ==
LOC: SUR 09:38 → OVERFLOW 17:41 → WEST WING 20:00
PROVIDERS: ADMIT Orthopaedic Surgery; ATTEND Orthopaedic Surgery
PROC: 0SRD069 Replacement of Left Knee Joint with Oxidized Zirconium on Polyethylene Synthetic Substitute, Cemented, Open Approach (ICD-10-PCS; principal; 2024-01-10 13:06)
DX: M17.12 Unilateral primary osteoarthritis, left knee (principal)
CPT/HCPCS: 36415; 72100; 73562; 76000; 80048; 85025; 86850; 86900; 86901; 93971; 97110; 97116; 97163; 97530; G0378; J0131; J0171; J0330; J1885; J2250; J2405; J2704; J3490

== ENCOUNTER 2024-05-29 09:20 | Inpatient (IN) | payer MEDICARE, OTHER ==
[2024-05-28 09:43] LABS: Urine Bacteria None Seen /hpf (None Seen)
[2024-05-28 10:20] LABS: Basophils % (auto) 0.8 % (0.0-2.0); Eosinophils # (auto) 0.1 10 ^3/uL (0-0.8); Lymphocytes # (auto) 2.2 10 ^3/uL (0.4-5.4); Mean Corpuscular Hgb Conc. 32.1 g/dL (32.0-36.0); Monocytes # (auto) 0.8 10 ^3/uL (0-1.3); Nucleated Red Blood Cells % 0.1 %; Red Cell Distribution Width 18.3 % (11.8-14.3); White Blood Cell 6.6 10^3/uL (4.4-10.8)
[2024-05-28 10:21] LABS: Basophils # (auto) 0.1 10 ^3/uL (0-0.2); Eosinophils % (auto) 1.9 % (0.0-7.0); Hematocrit 38.4 % (41.0-53.0); Hemoglobin 12.3 g/dL (13.5-17.5); Lymphocytes % (auto) 32.9 % (10.0-50.0); Mean Corpuscular Hemoglobin 24.2 pg (28.0-32.0); Mean Corpuscular Volume 75.3 fL (80.0-100.0); Monocytes % (auto) 11.9 % (0.0-12.0); Neutrophils # (auto) 3.5 10 ^3/uL (1.6-8.6); Neutrophils % (auto) 52.5 % (37.0-80.0); Platelet Count (auto) 297 10^3/uL (140-450); Red Blood Cells 5.11 10^6/uL (4.5-5.90)
[2024-05-28 10:39] LABS: INR 1.03 (0.9-1.15); Partial Thromboplastin Time 25.4 SEC (24.5-34.5); Prothrombin Time 10.9 sec (9.3-11.8)
[2024-05-28 11:05] LABS: Urine Blood Negative /uL (Negative); Urine Clarity Clear (Clear); Urine Color Light-Yellow (Yellow); Urine Protein, UAD Negative (Negative); Urine Specific Gravity 1.026 (1.001-1.035); Urine Urobilinogen Normal (Negative); Urine WBC 1 /hpf (0 - 3); Urine pH 5.5 (5.0-9.0)
[2024-05-28 11:13] LABS: Albumin 4.3 g/dL (3.2-4.8); Alkaline Phosphatase 65 U/L (46-116); Anion Gap 5 (5-15); Aspartate Aminotransferase 17 U/L (13-40); BUN/Creatinine Ratio 12.7 (10.0-20.0); Bilirubin, Total 0.5 mg/dL (0.2-1.0); Blood Urea Nitrogen 15 mg/dL (9-23); Calcium 9.5 mg/dL (8.7-10.4); Carbon Dioxide 30 mmol/L (20-30); Chloride 106 mmol/L (98-107); Glucose 90 mg/dL (74-106); Potassium 4.1 mmol/L (3.5-5.1); Sodium 141 mmol/L (136-145); Total Protein 6.9 g/dL (5.7-8.2)
[2024-05-28 11:48] LABS: Alanine Aminotransferase 14 U/L (7-40)
[~2024-05-29] VITALS: Ht 182.9 cm; Wt 164.8 kg
[~2024-05-29 09:20] MED LIST changes: -CHOL20007; -FER325T PO; +METF-370 PO
[2024-05-29] MEDS: ceFAZolin 2 GM/D5W50ml 50 ML IV ONE (09:25)
[2024-05-29] MEDS ORDERED: NALOXONE HCL 0.4 MG/ML VIAL IV PRN (09:45)
[2024-05-29] MEDS ORDERED: diphenhdrAMINE HCL 50 MG/1 ML VL IV PRN (09:45)
[2024-05-29] MEDS ORDERED: HYDROmorphone HCL 2 MG/ML VL/or syr IV PRN (09:45)
[2024-05-29] MEDS ORDERED: fentaNYL CITRATE 100 MCG/2 ML VL IV PRN (09:45)
[2024-05-29] MEDS ORDERED: MORPHINE SULFATE INJ 2 MG/ml SYRG IV PRN (09:45)
[2024-05-29] MEDS: TRANEXAMIC ACID 20 ML ONE (09:46)
[2024-05-29] MEDS: TETRACAINE 1% INJ 2 ML VIAL IJ ONE (09:50)
[2024-05-29] MEDS ORDERED: MORPHINE SULF PF 5 MG/10 ML VIAL ONE (09:52)
[2024-05-29] MEDS ORDERED: fentaNYL CITRATE 100 MCG/2 ML VL ONE ×2 (09:52→12:12)
[2024-05-29] MEDS ORDERED: BUPIVACAINE/DEXTROSE MPF 0.75% 2 ML AMP IT ONE (09:53)
[2024-05-29] MEDS ORDERED: PROPOFOL 10 MG/ML 20 ML IV ONE ×2 (09:53→11:25)
[2024-05-29] MEDS ORDERED: LIDOCAINE 1% INJ PF 5ML AMP ONE (09:53)
[2024-05-29] MEDS ORDERED: MIDAZOLAM HCL 2MG/2ML 2ml VIAL (1mg/ml) ONE (09:53)
[2024-05-29] MEDS ORDERED: EPINEPHrine HCL 1 MG/1 ML AMP ONE (09:53)
[2024-05-29] MEDS ORDERED: ONDANSETRON HCL 4 MG/2 ML VIAL ONE (09:53)
[2024-05-29] MEDS ORDERED: KETAMINE 50mg/ML 1ml syringe ONE (10:05)
[2024-05-29] MEDS ORDERED: ROCURONIUM 10MG/ML 10ML VIAL IV ONE (10:24)
[2024-05-29] MEDS ORDERED: DexAMETHasone SOD PHOS 10MG/1ML VIAL INJ ONE (10:50)
[2024-05-29] MEDS: BUPIVACAINE 0.5% P/F INJ 10 ML VIAL ONE (10:51)
[2024-05-29] MEDS: BUPIVACAINE 0.25% INJ 50ML VIAL ONE (10:51)
[2024-05-29] MEDS: EPINEPHrine HCL 1 MG/1 ML AMP ONE (11:15)
[2024-05-29] MEDS: VANCOMYCIN HCL 1000 MG VL ONE (11:49)
[2024-05-29] MEDS ORDERED: oxyCODONE HCL 5MG TAB PO PRN (12:45)
[2024-05-29] MEDS ORDERED: ACETAMINOPHEN 325 MG TAB PO PRN (12:45)
[2024-05-29] MEDS ORDERED: MEPERIDINE HCL (25 MG/ML) 1ML VIAL ONE (12:58)
[2024-05-29 12:59] VITALS: O2SAT 99
[2024-05-29] MEDS: HYDROmorphone HCL 2 MG/ML VL/or syr ONE (13:12)
[2024-05-29] MEDS: HYDROmorphone HCL 2 MG/ML VL/or syr IV PRN (13:13)
[2024-05-29] MEDS ORDERED: ceFAZolin 2 GM/D5W50ml 50 ML IV SCH (14:00)
[2024-05-29] MEDS: KETOROLAC TROMETH 30 MG/ML 1ML VIAL IV ONE (14:16)
[2024-05-29] MEDS: oxyCODONE HCL 5MG TAB PO PRN (14:47)
[2024-05-29] MEDS: D5W/LACTATED RINGERS 1,000 ML IV SCH (15:35)
[2024-05-29 16:51] VITALS: BP 123/68; PULSE 88; RESP 16; TEMP 98.2; O2SAT 96
[2024-05-29 17:00] VITALS: BP 143/82; PULSE 76; RESP 18; TEMP 97.7; O2SAT 94
[2024-05-29] MEDS: METOCLOPRAMIDE HCL 5MG/ml INJ 2ml VIAL IV ONE (17:35)
[2024-05-29] MEDS: ACETAMINOPHEN 325 MG TAB PO SCH (17:51)
[2024-05-29] MEDS: KETOROLAC TROMETH 30 MG/ML 1ML VIAL IV SCH (17:51)
[2024-05-29] MEDS: ceFAZolin 2 GM/D5W50ml 50 ML IV SCH (18:13)
[2024-05-29 21:00] VITALS: BP 122/63; PULSE 86; RESP 18; TEMP 98.1; O2SAT 97
[2024-05-29] MEDS: PREGABALIN 25 MG CAP PO SCH (21:35)
[2024-05-30 01:00] VITALS: BP 145/74; PULSE 74; RESP 18; TEMP 98; O2SAT 98
[2024-05-30 05:00] VITALS: BP 132/71; PULSE 71; RESP 19; TEMP 98.4; O2SAT 99
[2024-05-30 07:16] LABS: Basophils # (auto) 0 10 ^3/uL (0-0.2); Basophils % (auto) 0.2 % (0.0-2.0); Eosinophils # (auto) 0 10 ^3/uL (0-0.8); Eosinophils % (auto) 0.1 % (0.0-7.0); Lymphocytes % (auto) 12.3 % (10.0-50.0); Monocytes % (auto) 11.3 % (0.0-12.0); Neutrophils % (auto) 76.1 % (37.0-80.0)
[2024-05-30 07:18] LABS: Hematocrit 33.2 % (41.0-53.0); Hemoglobin 10.6 g/dL (13.5-17.5); Mean Corpuscular Hemoglobin 24.2 pg (28.0-32.0); Mean Corpuscular Volume 75.6 fL (80.0-100.0); Monocytes # (auto) 0.9 10 ^3/uL (0-1.3); Neutrophils # (auto) 6.3 10 ^3/uL (1.6-8.6); Platelet Count (auto) 253 10^3/uL (140-450); Red Cell Distribution Width 18.7 % (11.8-14.3); White Blood Cell 8.3 10^3/uL (4.4-10.8)
[2024-05-30 07:38] LABS: Alanine Aminotransferase 12 U/L (7-40); Alkaline Phosphatase 54 U/L (46-116); Anion Gap 3 (5-15); Aspartate Aminotransferase 11 U/L (13-40); BUN/Creatinine Ratio 12.6 (10.0-20.0); Blood Urea Nitrogen 14 mg/dL (9-23); Calcium 8.5 mg/dL (8.7-10.4); Carbon Dioxide 30 mmol/L (20-30); Chloride 105 mmol/L (98-107); Glucose 132 mg/dL (74-106); Potassium 4.6 mmol/L (3.5-5.1); Sodium 138 mmol/L (136-145)
[2024-05-30 07:39] LABS: Albumin 3.4 g/dL (3.2-4.8); Bilirubin, Total 0.3 mg/dL (0.2-1.0); Total Protein 5.7 g/dL (5.7-8.2)
[2024-05-30 08:00] VITALS: PULSE 86; RESP 18; O2SAT 98
[2024-05-30 08:35] VITALS: BP 110/57; PULSE 68; RESP 19; TEMP 97.9; O2SAT 97
[2024-05-30] MEDS: amLODIPine BESYLATE 5 MG TAB PO SCH (09:28)
[2024-05-30] MEDS ORDERED: PATIENTS OWN MEDICATION (Amlodipine Besylate 10 MG) PO SCH (10:00)
[2024-05-30 12:51] VITALS: BP 129/69; PULSE 73; RESP 20; TEMP 98.4; O2SAT 94
[2024-05-30 15:51] VITALS: BP 110/57
[2024-05-30] MEDS ORDERED: ASPirin 81 mg TAB PO SCH (22:00)
== END 2024-05-30 17:40 | disposition home or self-care (01) | DRG 470 ==
LOC: SUR 09:20 → OVERFLOW 12:47 → WEST WING 16:37 → TELE-WESTW 20:18 → WEST WING 05-30 07:14
PROVIDERS: ADMIT Orthopaedic Surgery; ATTEND Internal Medicine
PROC: 0SRC069 Replacement of Right Knee Joint with Oxidized Zirconium on Polyethylene Synthetic Substitute, Cemented, Open Approach (ICD-10-PCS; principal; 2024-05-29 10:37)
DX: M17.11 Unilateral primary osteoarthritis, right knee (principal); Z68.42 Body mass index [BMI] 45.0-49.9, adult; I10 Essential (primary) hypertension; E66.01 Morbid (severe) obesity due to excess calories; Z82.3 Family history of stroke; Z82.49 Family history of ischemic heart disease and other diseases of the circulatory system; Z83.3 Family history of diabetes mellitus
CPT/HCPCS: 36415; 73560; 80053; 81001; 85025; 85610; 85730; 86850; 86900; 86901; 97163; G0378; J0171; J1100; J1885; J2250; J2405; J2704; J3490

== ENCOUNTER 2024-08-07 06:19 | Inpatient (IN) | payer MEDICARE, OTHER ==
[2024-08-03 10:03] LABS: Urine Bacteria None Seen /hpf (None Seen)
[2024-08-03 10:11] LABS: Basophils # (auto) 0.1 10 ^3/uL (0-0.2); Eosinophils # (auto) 0.2 10 ^3/uL (0-0.8); Hemoglobin 13.5 g/dL (13.5-17.5); Lymphocytes # (auto) 2.1 10 ^3/uL (0.4-5.4); Monocytes # (auto) 0.7 10 ^3/uL (0-1.3)
[2024-08-03 10:14] LABS: Basophils % (auto) 1.2 % (0.0-2.0); Eosinophils % (auto) 3.1 % (0.0-7.0); Hematocrit 41.8 % (41.0-53.0); Lymphocytes % (auto) 31.9 % (10.0-50.0); Mean Corpuscular Hemoglobin 25.3 pg (28.0-32.0); Mean Corpuscular Hgb Conc. 32.3 g/dL (32.0-36.0); Mean Corpuscular Volume 78.3 fL (80.0-100.0); Monocytes % (auto) 10.9 % (0.0-12.0); Neutrophils # (auto) 3.4 10 ^3/uL (1.6-8.6); Neutrophils % (auto) 52.9 % (37.0-80.0); Nucleated Red Blood Cells % 0.1 %; Platelet Count (auto) 369 10^3/uL (140-450); Red Blood Cells 5.34 10^6/uL (4.5-5.90); Red Cell Distribution Width 18.4 % (11.8-14.3); White Blood Cell 6.5 10^3/uL (4.4-10.8)
[2024-08-03 10:34] LABS: INR 1.05 (0.9-1.15); Partial Thromboplastin Time 25.3 SEC (24.5-34.5); Prothrombin Time 11.1 sec (9.3-11.8)
[2024-08-03 11:07] LABS: Alanine Aminotransferase 21 U/L (7-40); Albumin 4.6 g/dL (3.2-4.8); Alkaline Phosphatase 84 U/L (46-116); Anion Gap 5 (5-15); Aspartate Aminotransferase 18 U/L (13-40); BUN/Creatinine Ratio 9.4 (10.0-20.0); Bilirubin, Total 0.3 mg/dL (0.2-1.0); Blood Urea Nitrogen 11 mg/dL (9-23); Calcium 10.2 mg/dL (8.7-10.4); Carbon Dioxide 30 mmol/L (20-31); Chloride 106 mmol/L (98-107); Glucose 104 mg/dL (74-106); Potassium 4.6 mmol/L (3.5-5.1); Sodium 141 mmol/L (136-145); Total Protein 7.8 g/dL (5.7-8.2)
[2024-08-03 11:24] LABS: Urine Blood Negative /uL (Negative); Urine Clarity Clear (Clear); Urine Color Yellow (Yellow); Urine Mucus FEW (None Seen); Urine Protein, UAD TRACE (Negative); Urine Specific Gravity 1.024 (1.001-1.035); Urine Urobilinogen Normal (Negative); Urine WBC 2 /hpf (0 - 3); Urine pH 5.5 (5.0-9.0)
[~2024-08-07] VITALS: Ht 193 cm; Wt 164.6 kg
[2024-08-07] VITALS (11 sets, daily range): BP systolic 75–135; BP diastolic 42–79; PULSE 64–91; RESP 11–20; TEMP 97.2–98; O2SAT 45–100
[2024-08-07] MEDS: levoFLOXacin 750MG 150 ML IV ONE (05:30)
[~2024-08-07 06:19] MED LIST changes: +METF-869 PO
[2024-08-07] MEDS: ceFAZolin 2 GM/D5W100ml 100 ML IV ONE (06:29)
[2024-08-07] MEDS: TRANEXAMIC ACID 20 ML ONE (06:31)
[2024-08-07] MEDS: LIDOCAINE 2% JELLY 11ml (GLYDO) ONE (06:31)
[2024-08-07] MEDS: PROPOFOL 300 ML IV ONE (07:02)
[2024-08-07] MEDS: levoFLOXacin 500MG 100 ML IV ONE (07:15)
[2024-08-07] MEDS ORDERED: fentaNYL CITRATE 100 MCG/2 ML VL ONE (07:39)
[2024-08-07] MEDS ORDERED: MIDAZOLAM HCL 2MG/2ML 2ml VIAL (1mg/ml) ONE (07:58)
[2024-08-07] MEDS ORDERED: HYDROmorphone HCL 2 MG/ML VL/or syr ONE ×2 (08:29→08:59)
[2024-08-07] MEDS: LIDOCAINE W/ EPINEPHRINE 1% 20ML VIAL ONE (08:53)
[2024-08-07] MEDS ORDERED: DexAMETHasone SOD PHOS 10MG/1ML VIAL INJ ONE (09:22)
[2024-08-07] MEDS: ONDANSETRON HCL 4 MG/2 ML VIAL IV ONE (10:30)
[2024-08-07] MEDS ORDERED: MORPHINE SULFATE 4 MG/ML SYR/VIAL IV PRN ×2 (10:30)
[2024-08-07] MEDS ORDERED: ONDANSETRON HCL 4 MG/2 ML VIAL ONE (11:06)
[2024-08-07] MEDS ORDERED: ONDANSETRON HCL 4 MG/2 ML VIAL IV PRN (11:15)
[2024-08-07] MEDS ORDERED: ACETAMINOPHEN 325 MG TAB PO PRN (11:15)
[2024-08-07] MEDS ORDERED: NITROGLYCERIN 0.4 MG SL TAB SL PRN (11:15)
[2024-08-07] MEDS ORDERED: MORPHINE SULFATE INJ 2 MG/ml SYRG IV PRN (11:15)
[2024-08-07] MEDS ORDERED: GLYCOPYRROLATE 0.2 MG/ML 1ML VIAL ONE (11:58)
[2024-08-07 12:57] LABS: Base Excess -5.7 mmol/L (-2.0-3.0)
[2024-08-07] MEDS: NALOXONE HCL 0.4 MG/ML VIAL ONE (13:07)
[2024-08-07 13:54] LABS: Base Excess -4.5 mmol/L (-2.0-3.0)
[2024-08-07] MEDS ORDERED: ceFAZolin 1GM/50ML 50 ML IV SCH (14:00)
[2024-08-07] MEDS: ceFAZolin 1GM/50ML 50 ML IV SCH (17:07)
[2024-08-07] MEDS: NALOXONE HCL 0.4 MG/ML VIAL IV ONE (17:21)
[2024-08-07] MEDS: HYDROcodone-ACET 10/325MG TAB PO PRN (17:44)
[2024-08-07] MEDS: MORPHINE SULFATE INJ 2 MG/ml SYRG IV PRN (20:37)
[2024-08-07] MEDS: D5W/SOD CHLO 0.9% 1,000 ML IV SCH (21:15)
[2024-08-07] MEDS: CYCLOBENZAPRINE HCL 10 MG TAB PO SCH (22:00)
[2024-08-07] MEDS: DOCUSATE SOD 100 MG CAP PO SCH (22:57)
[2024-08-08] VITALS (11 sets, daily range): BP systolic 133–154; BP diastolic 64–88; PULSE 69–102; RESP 16–22; TEMP 97.6–98.5; O2SAT 92–100
[2024-08-08 06:18] LABS: Basophils # (auto) 0 10 ^3/uL (0-0.2); Basophils % (auto) 0.1 % (0.0-2.0); Eosinophils # (auto) 0 10 ^3/uL (0-0.8); Lymphocytes # (auto) 1.1 10 ^3/uL (0.4-5.4)
[2024-08-08 06:20] LABS: Hematocrit 33.7 % (41.0-53.0); Lymphocytes % (auto) 9.4 % (10.0-50.0); Mean Corpuscular Hemoglobin 25.6 pg (28.0-32.0); Mean Corpuscular Hgb Conc. 32.6 g/dL (32.0-36.0); Mean Corpuscular Volume 78.5 fL (80.0-100.0); Monocytes % (auto) 8.7 % (0.0-12.0); Neutrophils # (auto) 9.5 10 ^3/uL (1.6-8.6); Neutrophils % (auto) 81.8 % (37.0-80.0); Platelet Count (auto) 319 10^3/uL (140-450); Red Blood Cells 4.29 10^6/uL (4.5-5.90); White Blood Cell 11.6 10^3/uL (4.4-10.8)
[2024-08-08 06:42] LABS: Alanine Aminotransferase 15 U/L (7-40); Albumin 3.9 g/dL (3.2-4.8); Alkaline Phosphatase 62 U/L (46-116); Anion Gap 5 (5-15); Aspartate Aminotransferase 20 U/L (13-40); BUN/Creatinine Ratio 13.5 (10.0-20.0); Bilirubin, Total 0.2 mg/dL (0.2-1.0); Blood Urea Nitrogen 14 mg/dL (9-23); Calcium 8.8 mg/dL (8.7-10.4); Carbon Dioxide 26 mmol/L (20-31); Chloride 106 mmol/L (98-107); Glucose 133 mg/dL (74-106); Potassium 4.5 mmol/L (3.5-5.1); Sodium 137 mmol/L (136-145)
[2024-08-08 06:43] LABS: Total Protein 6.4 g/dL (5.7-8.2)
[2024-08-08] MEDS: D5W/SOD CHLO 0.9% 1,000 ML IV SCH (11:15)
[2024-08-09] VITALS (10 sets, daily range): BP systolic 136–163; BP diastolic 78–96; PULSE 78–108; RESP 16–20; TEMP 97.6–99.3; O2SAT 90–98
[2024-08-09] MEDS: amLODIPine BESYLATE 5 MG TAB PO SCH (08:25)
[2024-08-10] VITALS (12 sets, daily range): BP systolic 137–151; BP diastolic 77–96; PULSE 68–107; RESP 16–19; TEMP 98.2–99.1; O2SAT 90–98
[2024-08-10] MEDS: LACTULOSE 20Gm/30ML SOLN PO ONE (14:29)
[2024-08-11] VITALS (9 sets, daily range): BP systolic 117–165; BP diastolic 70–95; PULSE 75–106; RESP 16–21; TEMP 97.3–98.9; O2SAT 90–98
[2024-08-11] MEDS ORDERED: KETOROLAC TROMETH 60MG/2ML VIAL IM ONE (08:56)
[2024-08-11] MEDS: KETOROLAC TROMETH 30 MG/ML 1ML VIAL IV ONE (17:47)
[2024-08-12] VITALS (8 sets, daily range): BP systolic 132–147; BP diastolic 56–84; PULSE 77–102; RESP 18–19; TEMP 98.2–99.1; O2SAT 93–99
[2024-08-12] MEDS: KETOROLAC TROMETH 30 MG/ML 1ML VIAL IV PRN (15:01)
[2024-08-13] VITALS (7 sets, daily range): BP systolic 109–131; BP diastolic 68–84; PULSE 76–95; RESP 16–20; TEMP 97–98.4; O2SAT 95–99
== END 2024-08-13 17:40 | disposition home health service (06) | DRG 426 ==
LOC: SUR 06:19 → OVERFLOW 11:07 → TELE 11:07 → UNDOADMIN 11:07 → TELE 13:09 → TELE-EAST 15:10 → EAST 08-09 02:17
PROVIDERS: ADMIT Orthopaedic Surgery; ATTEND Internal Medicine
PROC: 0SG1071 Fusion of 2 or more Lumbar Vertebral Joints with Autologous Tissue Substitute, Posterior Approach, Posterior Column, Open Approach (ICD-10-PCS; 2024-08-07)
PROC: 01NB0ZZ Release Lumbar Nerve, Open Approach (ICD-10-PCS; 2024-08-07)
PROC: 00NY0ZZ Release Lumbar Spinal Cord, Open Approach (ICD-10-PCS; 2024-08-07)
PROC: 4A11X4G Monitoring of Peripheral Nervous Electrical Activity, Intraoperative, External Approach (ICD-10-PCS; 2024-08-07)
PROC: 5A09357 Assistance with Respiratory Ventilation, Less than 24 Consecutive Hours, Continuous Positive Airway Pressure (ICD-10-PCS; 2024-08-07)
PROC: 0SG10AJ Fusion of 2 or more Lumbar Vertebral Joints with Interbody Fusion Device, Posterior Approach, Anterior Column, Open Approach (ICD-10-PCS; principal; 2024-08-07 07:51)
PROC: 5A09357 Assistance with Respiratory Ventilation, Less than 24 Consecutive Hours, Continuous Positive Airway Pressure (ICD-10-PCS; 2024-08-08)
PROC: 5A09357 Assistance with Respiratory Ventilation, Less than 24 Consecutive Hours, Continuous Positive Airway Pressure (ICD-10-PCS; 2024-08-09)
PROC: 5A09357 Assistance with Respiratory Ventilation, Less than 24 Consecutive Hours, Continuous Positive Airway Pressure (ICD-10-PCS; 2024-08-10)
PROC: 5A09357 Assistance with Respiratory Ventilation, Less than 24 Consecutive Hours, Continuous Positive Airway Pressure (ICD-10-PCS; 2024-08-11)
PROC: 5A09357 Assistance with Respiratory Ventilation, Less than 24 Consecutive Hours, Continuous Positive Airway Pressure (ICD-10-PCS; 2024-08-12)
PROC: 5A09357 Assistance with Respiratory Ventilation, Less than 24 Consecutive Hours, Continuous Positive Airway Pressure (ICD-10-PCS; 2024-08-13)
DX: M48.061 Spinal stenosis, lumbar region without neurogenic claudication (principal); J96.00 Acute respiratory failure, unspecified whether with hypoxia or hypercapnia; Z68.41 Body mass index [BMI] 40.0-44.9, adult; E66.01 Morbid (severe) obesity due to excess calories; G47.30 Sleep apnea, unspecified; M51.16 Intervertebral disc disorders with radiculopathy, lumbar region; I10 Essential (primary) hypertension; K59.00 Constipation, unspecified; M62.830 Muscle spasm of back; Z83.3 Family history of diabetes mellitus; Z82.49 Family history of ischemic heart disease and other diseases of the circulatory system; Z82.3 Family history of stroke
CPT/HCPCS: 36415; 36600; 71045; 72100; 76000; 80053; 81001; 82805; 83036; 85025; 85610; 85730; 86850; 86900; 86901; 94660; 97110; 97116; 97163; 97530; G0378; J1100; J1885; J1956; J2250; J2405; J2704; J7060